=== PATIENT | female | born 1965 | race Caucasian/White ===

== ENCOUNTER 2017-01-09 01:13 | Emergency (ER) | payer OTHER ==
[~2017-01-09] VITALS: Ht 170.2 cm; Wt 77.3 kg
[2017-01-09 01:22] VITALS: TEMP 97.5
[2017-01-09] MEDS ORDERED: PEN-VEE K500 MG PO (01:53)
[2017-01-09 02:34] VITALS: BP 130/70; PULSE 94
== END 2017-01-09 02:34 | disposition home or self-care (01) ==
LOC: COL.ER 01:13
DX: K04.7 Periapical abscess without sinus (principal); F17.200 Nicotine dependence, unspecified, uncomplicated